=== PATIENT | male | born 1950 | race Caucasian/White ===

== ENCOUNTER → 2018-02-05 10:56 | Outpatient (CLI) | payer OTHER, SELFPAY ==
--- NOTE | 2018-02-05 11:00 | RAD_ITS ---
STUDY: X-RAY - RIGHT SHOULDER REASON FOR EXAM: Male, 67 years old. Pop after lifting something TECHNIQUE: 3 view(s) of the shoulder. COMPARISON: None. FINDINGS: Normal glenohumeral articulation. Normal acromioclavicular joint. Normal acromion. Normal humeral head and visualized proximal humerus. The soft tissue structures are unremarkable. Normal visualized pulmonary apex. Median sternotomy wires. RAD/Shoulder min 2 Views IMPRESSION: Normal x-ray examination of the shoulder. Electronically Signed: Jhonny Infante MD at 4:34 EDT Tel , Service support ,
== END ==
PROVIDERS: Family Provider Family Medicine; PCP Family Medicine; Visit Provider Physician Assistant
DX: S46.911A Strain of unspecified muscle, fascia and tendon at shoulder and upper arm level, right arm, initial encounter (principal); X58.XXXA Exposure to other specified factors, initial encounter
CPT/HCPCS: 73030

== ENCOUNTER → 2018-02-19 07:01 | Outpatient (CLI) | payer OTHER, SELFPAY ==
--- NOTE | 2018-02-19 07:02 | MRI_ITS ---
STUDY: MRI RIGHT SHOULDER REASON FOR EXAM: Limited range of motion, shoulder pain, lifting/pushing injury 3 weeks ago. TECHNIQUE: Standardized fat and water weighted pulse sequences were obtained in all 3 orthogonal planes. COMPARISON: Radiographs 02/05/2018. FINDINGS: There is mild supraspinatus tendinosis and a small intrasubstance partial-thickness tear of the distal posterior supraspinatus tendon (T2 coronal image 10). Normal infraspinatus tendon. There is mild distal subscapularis tendinosis (proton density axial image 12) without discrete tendon tear. Normal teres minor tendon. Normal supraspinatus muscle. Normal infraspinatus muscle. Normal subscapularis muscle. Normal teres minor muscle. Normal glenohumeral articulation. There a mild cystic change of the posterior aspect of the greater tuberosity. Normal biceps labral complex. Normal intracapsular long biceps tendon. Normal labrum. Normal capsulo- ligamentous complex. There is mild acromioclavicular arthrosis (T2 sagittal image 16) without substantial undersurface osteophytes. There is a Type II morphology (curved), with a neutral orientation. There is no subacromial-subdeltoid bursal fluid. Normal visualized coracohumeral and coracoacromial ligaments. Normal deltoid muscle. Normal trapezius muscle. MRI/Upper Ext Joint Only(Routine) IMPRESSION: Small intrasubstance partial-thickness tear and mild tendinosis of the supraspinatus tendon. Mild subscapularis tendinosis. Mild acromioclavicular arthrosis. Electronically Signed: David Dawn MD at 9:45 EDT Tel , Service support ,
== END ==
PROVIDERS: Family Provider Family Medicine; PCP Family Medicine; Visit Provider Physician Assistant
DX: S46.911A Strain of unspecified muscle, fascia and tendon at shoulder and upper arm level, right arm, initial encounter (principal)
CPT/HCPCS: 73221

== ENCOUNTER 2018-04-11 07:00 | Outpatient (RCR) | payer OTHER, SELFPAY ==
--- NOTE | 2018-03-12 09:47 | HP.PTEVAL_ITS ---
Patient's Visit Information NIDIA PRYOR is a 68 year old M referred to Physical Therapy by ANICETO Noble with a diagnosis of R shoulder strain. Date of Evaluation: 03/12/18 Physical Therapist: Donn Black PT, - Visit Plan Frequency: 3x /Week Duration: 4 Weeks Plan: R shoulder strengthening (rot cuff), scap stab ex's, pulleys, UBE, and HEP. CP for pain. - Subjective Subjective: DOI: 02/01/18. Pt reports he was lifting heavy objects over his head when he injured his R shoulder. Pt reports his shoulder popped which resulted in severe pain. Pt notes his pain shot down his arm. No PMHx. Pt is R hand dom. No R UE T or N at this time. Pt had an MRI which revealed a slight tear of the rot cuff. Pt notes he hopes to avoid surgery at this time. Pt reports he is now retired. Pt reports his pain is on the posterior aspect of R shoulder. Pt notes any type of pushing motion increases his pain. Pt states that tylenol helps with his pain. 2/10 pain at rest, 5/10 at worst (while sleeping) - Pain R shoulder pain Pain Intensity (Out of 10): 2 Pain Intensity Range: 5 - Objective Neuro: B UE sensation is WNL to light touch. Palpation: Pt is sore along the distribution of the infraspinatus tendon of the R shoulder. No obvious deformity present at this time. ROM: L shoulder flex= 150, abd= 132, ER= 35, IR WNL; R shoulder flex= 100, abd= 115, ER= 25, IR min limited. MMT: L shoulder is 5/5 throughout. R shoulder flex and abd= 4/5, ER= 4-/5, IR 5/5. SPecial testing: Pos garcia shanti test - Goals Goal 1:: Decrease R shoulder pain x 50% to aid with sleep Goal Time Frame: 4-6 Weeks Goal 2:: Increase R shoulder flex and abd ROM x 30 degrees to aid with overhead activity Goal Time Frame: 4-6 Weeks Goal 3:: Increase R shoulder strength x 1 grade to aid with IADL's Goal Time Frame: 4-6 Weeks Goal 4:: I with HEP Goal Time Frame: 4-6 Weeks - Rehabilitation Potential Rehabilitation Potential: Good - Anticipated Interventions Patient/Client Instruction: Educate patient on: Condition, Plan of Care For the Purpose of:: To improve self management Therapeutic Exercise to Include: Strength training, Endurance training, Body mechanics, Flexibilty training, Active ROM, Scapular Strength/Stabilization For the Purpose of:: To decrease pain, To increase ROM, To improve muscle performance and motor function Cryotherapy (ice pack, ice massage): Yes For the Purpose of:: To decrease pain Thank you for the opportunity to evaluate your patient. For Medicare and Medicare HMO plans, please review the plan of care and approve it. It will need to be FAXED BACK to us at [phone] for Medicare purposes. Please let me know if there are questions or concerns regarding this plan of care. Physician Signature: Date:
--- NOTE | 2018-04-11 07:00 | DT_ITS ---
This patient was seen during an EMR downtime April 09, 2018 - April 16, 2018. This patient may have a combination of paper and electronic documentation or all paper documentation. All documentation is viewable within the e-chart portion of [facility] for each patient visit.
--- NOTE | 2018-04-18 09:01 | HP.PTDCSUM ---
HP - PT D/C Summary It has been my pleasure to treat NIDIA PRYOR under orders from ANICETO Noble, for the diagnosis of R shoulder strain for a total of 13 visit(s). Discharge Date: Please see the following information for a summary of their discharge status. - Subjective Subjective: Due to electronic downtime procedure, the information from April 09- April 15 was electronically scanned in. to the medical record. Pt reports he is sore today. I dont really see any improvements - Pain R shoulder pain Pain Intensity (Out of 10): 2 - Objective Objective/Function: R shoulder ROM: flex= 125, abd= 115, ER= 40, IR min limited. MMT: ER= 4-/5, all others 5/5 throughout. Empty can and neer's impingement tests still pos. No sig improvements at this time - Goals Goal 1:: Decrease R shoulder pain x 50% to aid with sleep Goal 2:: Increase R shoulder flex and abd ROM x 30 degrees to aid with overhead activity Goal 3:: Increase R shoulder strength x 1 grade to aid with IADL's Goal 4:: I with HEP - Plan Plan: Discontinue, and RTD - D/C Information If there are questions or concerns regarding this patient's physical therapy, please feel free to call me at [phone]. Thank you for the referral of this patient. Sincerely, Donn Black, PT,
== END 2018-04-11 19:00 | disposition home or self-care (01) ==
LOC: PT 07:00
PROVIDERS: Family Provider Family Medicine; PCP Family Medicine; Visit Provider Physician Assistant
DX: S46.911D Strain of unspecified muscle, fascia and tendon at shoulder and upper arm level, right arm, subsequent encounter (principal)
CPT/HCPCS: 97110; 97161; 97530; G8984; G8985; G8986

== ENCOUNTER 2019-01-30 14:00 | Outpatient (RCR) | payer OTHER, SELFPAY ==
--- NOTE | 2018-12-27 10:54 | HP.PTEVAL ---
Patient's Visit Information NIDIA PRYOR is a 68 year old M referred to Physical Therapy by Alessio Marshall DO with a diagnosis of RIGHT ROTATOR CUFF STRAIN. Date of Evaluation: 12/27/18 Physical Therapist: Chetna Quan PT, Cert MDT - Visit Plan Frequency: 3x /Week Duration: 4 Weeks Plan: RIGHT UE US, ES WITH MH, ROM, STRETCHING AND STRENGTHENING INCLUDING SHOULDER JOINT MOBILIZATION AND A/AA/PROM TO HELP MEET SET GOALS. INSTRUCT IN PROPER POSTURE CONTROL, APPROPRIATE ACTIVITY MODIFICATIONS AND PROPER ERGONOMICS. POSTURE CORRECTION/STRENGTHEING. - Subjective Findings: Work/Leisure: RETIRED. Disability: NO. Present symptoms: RIGHT SHOULDER PAIN. RIGHT UE GENERALIZED WEAKNESS. CHRISTO HAND PAIN. Present since: 02/01/18. Pain Scale: Worst - 8/10 Least - 3/10. Currently: 01/13. 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 Symptoms at onset: RIGHT SHOULDER PAIN. Worse: REACHING TOO FAR, REACHING TOO QUICKLY, LYING ON IT, TRYING TO WORK OVER HEAD. Better: NOT USING IT. Disturbed sleep: YES. Previous history/Previous treatment: PHYSICAL THERAPY HERE LAST YEAR - 12 SESSIONS HELPED STRENGTH BUT NOT PAIN PER PATIENT REPORT. RIGHT SHOULDER INJECTION MAY 01 2018 WHICH HELPED FOR ABOUT [address] VENTURA - LAST FALL SURGERY WAS RECOMMENDED. RECENT CONSULT WITH DR. MARSHALL - PT RECOMMENDED NOT SURGERY. Dizziness: NO. Tinnitis: NO. Nausea: NO. Shortness of Breath: YES - HEART PROBLEMS. Difficulty Swollowing: NO. Gait: NORMAL. Accidents: NO. Unexplained weight loss: NO. Imaging: MRI FEBRUARY 2018 - MILD SUPRASPINATUS TENDINOSIS AND SMALL INTRASUBSTANCE PARTIAL THICKNESS TEAR OF THE DISTAL POSTERIOR SUPRASPINATUS TENDON. 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 MILD HEART ATTACK 2006. ANOTHER HEART STENT 2015. LAST HEART CATH LOOKED GOOD PER PATIENT. CHRONIC LBP AND STIFFNESS. PLOF (Prior Level of Function): UNLIMITED PRIOR TO WORK INJURY JANUARY 2018. OTHER: PATIENT REPORTS HE IS WILLING TO HAVE SURGERY IF HE HAS TO BUT REALLY DOESN'T WANT TO IF HE CAN AVOID IT. DOESN'T WANT TO LET IT GO TO LONG AND END UP NEEDING SHOULDER REPLACEMENT. - Objective Sitting Posture/Standing Posture: VERY FORWARD HEAD AND ROUNDED SHOULDERS. NO TORTICOLLIS. Active Correction of posture: NE - ONLY ABLE TO PARTIALLY CORRECT. LOW BACK VERY STIFF. Other Observations: INDEP GAIT INTO PT WITHOUT ANY ASSISTIVE DEVICES OR LOSS OF BALANCE. 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 LEFT UE GROSSLY WFL. RIGHT UE WEAKNESS THROUGHOUT AND TESTING IS PAIN LIMITED. Sensory deficit: NO. ROM deficit: RIGHT SHOULDER ACTIVE FLEX 92 DEG, ABD 78 DEG, SUPINE IR/ER WITH 70 DEG ABD 40 DEG/45 DEG. LEFT SHOULDER IS ALSO LIMITED IN ROM BUT NOT PAINFUL. 133 DEG ACTIVE FLEXION. Cervical Mvmt Loss: Flex: NIL. Pro: NIL. Ext: MOD. Ret: NATHAN. RSB: MOD TO NATHAN. LSB: MOD TO NATHAN. R Rot: MOD. L Rot: MOD. PATIENT DENIES INCREASED PAIN WITH CERVICAL ROM TESTING. Postural strength: POOR AND VERY STIFF. Palpation: MILD TENDERNESS THROUGHOUT RIGHT SHOULDER BUT ESPECIALLY LATERALLY. - Goals Goal 1:: DECREASE C/O RIGHT SHOULDER PAIN Goal Time Frame: 4-6 Weeks Goal 2:: IMPROVE RIGHT UE FUNCTIONAL ROM Goal Time Frame: 4-6 Weeks Goal 3:: IMPROVE RIGHT UE FUNCTIONAL STRENGTH Goal Time Frame: 4-6 Weeks Goal 4:: INDEP HEP Goal Time Frame: 4-6 Weeks - Rehabilitation Potential Rehabilitation Potential: Fair - Anticipated Interventions Patient/Client Instruction: Educate patient on: Condition, Plan of Care, Risk Factors, Benefits of Fitness Program For the Purpose of:: To improve self management Therapeutic Exercise to Include: Strength training, Body mechanics, Postural training, Passive ROM, Active ROM, Scapular Strength/Stabilization For the Purpose of:: To decrease pain, To increase ROM, To improve muscle performance and motor function, To increase tolerance to activity/condition/position, To improve ability of physical actions for home/community/work/leisure Manual Therapy Techniques to Include: Mobilization, Passive ROM For the Purpose of:: To decrease pain, To increase ROM, To improve nutrient delivery to tissue TENS: Yes Cryotherapy (ice pack, ice massage): Yes Thermo therapy (hot pack): Yes Ultrasound (thermal/non thermal): Yes For the Purpose of:: To decrease pain, To decrease swelling/inflammation, To increase ROM, To improve nutrient delivery to tissue Thank you for the opportunity to evaluate your patient. For Medicare and Medicare HMO plans, please review the plan of care and approve it. It will need to be FAXED BACK to us at [phone] for Medicare purposes. For Medicare only, by signing this I certify the plan of care. Please let me know if there are questions or concerns regarding this plan of care. Physician Signature: Date:
--- NOTE | 2019-01-30 15:51 | HP.PTREVAL ---
Alessio Marshall, DO, It has been my pleasure to treat NIDIA PRYOR over the last 11 visits for RIGHT ROTATOR CUFF STRAIN. Please see the progress note below for an update on the physical therapy plan of care! Subjective: PATIENT CONTINUES TO REPORT IMPROVEMENT. HE REPORTS HE HAS GAINED AN AWFUL LOT SINCE STARTING PHYSICAL THERAPY. STATES HE HAS AN GIA'T WITH DR. FUENTES TOMORROW. Objective/Function: PATIENTS STRENGTH, ROM AND PAIN HAVE IMPROVED SINCE STARTING THERAPY. 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 AROM RIGHT SHOULDER: FLEX 121 DEG, ABD 124 DEG. PROM: FLEX 138, ABD 129 IR 51 DEG, ER 49 DEG (WITH 70 DEG ABD). QUICK DASH SCORE HAS IMPROVED FROM 34 TO 21 AND NOW 19. Plan Plan: FOLLOW UP WITH DR. MENDOZA Goals Goal 1:: DECREASE C/O RIGHT SHOULDER PAIN Goal Time Frame: 4-6 Weeks Goal 2:: IMPROVE RIGHT UE FUNCTIONAL ROM Goal Time Frame: 4-6 Weeks Goal 3:: IMPROVE RIGHT UE FUNCTIONAL STRENGTH Goal Time Frame: 4-6 Weeks Goal 4:: INDEP HEP Goal Time Frame: 4-6 Weeks Anticipated Interventions Patient/Client Instruction: Educate patient on: Condition, Plan of Care, Risk Factors, Benefits of Fitness Program For the Purpose of:: To improve self management Therapeutic Exercise to Include: Strength training, Body mechanics, Postural training, Passive ROM, Active ROM, Scapular Strength/Stabilization For the Purpose of:: To decrease pain, To increase ROM, To improve muscle performance and motor function, To increase tolerance to activity/condition/position, To improve ability of physical actions for home/community/work/leisure Manual Therapy Techniques to Include: Mobilization, Passive ROM For the Purpose of:: To decrease pain, To increase ROM, To improve nutrient delivery to tissue TENS: Yes Cryotherapy (ice pack, ice massage): Yes Thermo therapy (hot pack): Yes Ultrasound (thermal/non thermal): Yes For the Purpose of:: To decrease pain, To decrease swelling/inflammation, To increase ROM, To improve nutrient delivery to tissue Please do not hesitate to contact me at [phone] by phone or if you have questions or concerns regarding this new plan of care! Sincerely, Chetna Quan, PT, Cert MDT
--- NOTE | 2019-04-15 16:44 | HP.PT.NRP ---
HP - Discharge Summary (1) - Patient Information NIDIA PRYOR was seen in my office for initial evaluation on 12/27/18. The following Plan of Care was established for this patient: Initial Frequency: 3x /Week Initial Duration: 4 Weeks - Anticipated Interventions Patient/Client Instruction: Educate patient on: Condition, Plan of Care, Risk Factors, Benefits of Fitness Program For the Purpose of:: To improve self management Therapeutic Exercise to Include: Strength training, Body mechanics, Postural training, Passive ROM, Active ROM, Scapular Strength/Stabilization For the Purpose of:: To decrease pain, To increase ROM, To improve muscle performance and motor function, To increase tolerance to activity/condition/position, To improve ability of physical actions for home/community/work/leisure Manual Therapy Techniques to Include: Mobilization, Passive ROM For the Purpose of:: To decrease pain, To increase ROM, To improve nutrient delivery to tissue TENS: Yes Cryotherapy (ice pack, ice massage): Yes Thermo therapy (hot pack): Yes Ultrasound (thermal/non thermal): Yes For the Purpose of:: To decrease pain, To decrease swelling/inflammation, To increase ROM, To improve nutrient delivery to tissue This patient was last seen in our office 01/30/19. Pertinent comments regarding their Physical therapy will appear below: This patient has not returned to Physical Therapy and is appropriate to return to MD for further follow-up as needed. At this point I will be discontinuing this patient from physical therapy. I would be happy to see this patient again in the future if found appropriate by the physician. Thank you! Chetna Quan, PT, Cert MDT
== END 2019-01-30 19:00 | disposition home or self-care (01) ==
LOC: PT 14:00
PROVIDERS: Family Provider Family Medicine; PCP Family Medicine; Referring Provider Orthopaedic Surgery; Visit Provider Orthopaedic Surgery
DX: S46.011D Strain of muscle(s) and tendon(s) of the rotator cuff of right shoulder, subsequent encounter (principal); S46.911D Strain of unspecified muscle, fascia and tendon at shoulder and upper arm level, right arm, subsequent encounter
CPT/HCPCS: 97035; 97110; 97140; 97162; 97530

== ENCOUNTER 2019-08-20 08:51 | Day surgery (SDC) | payer OTHER, SELFPAY ==
[2019-07-29 08:15] VITALS: BMI 28.0
[2019-08-20] VITALS (8 sets, daily range): BP systolic 102–178; BP diastolic 62–70; PULSE 57–68; RESP 16–18; TEMP 36.1–36.4; O2SAT 96–100; BMI 27.3
[2019-08-20] MEDS: Lactated Ringers 1,000 ML 100 ML IV (09:42)
--- NOTE | 2019-08-20 09:46 | EKG12_ITS ---
Test Reason : PRE OP Blood Pressure : / mmHG Vent. Rate : 054 BPM Atrial Rate : 054 BPM P-R Int : 246 ms QRS Dur : 092 ms QT Int : 460 ms P-R-T Axes : 033 -21 252 degrees QTc Int : 436 ms Sinus bradycardia with 1st degree A-V block T wave abnormality, consider anterolateral ischemia Abnormal ECG When compared with ECG of 16-MAR-2004 09:01, HI interval has increased Nonspecific T wave abnormality now evident in Inferior leads T wave inversion more evident in Anterior leads T wave inversion less evident in Lateral leads Confirmed by JASPER PAREDES ([id number]), web editor DINAH ALLRED ([id number]) on 08/23/2019 10:30:20 AM Referred By: Alessio Marshall Confirmed By:JASPER PAREDES
--- NOTE | 2019-08-20 09:47 | PCM.HP.BLA ---
History and Physical Date of Admission: 08/20/19 Intake Vital Signs 07/29/19 Body Mass Index (BMI) 28.0 Intake Visit Reasons: right shoulder Chief Complaint: R shoulder recheck Allergies No Known Allergies Allergy (Verified 11/30/18 08:23) Medications carvedilol 6.25 mg tablet PO 30 Days #60 02/05/18 [History Confirmed 07/29/19] clopidogrel 75 mg tablet PO 75 Days #75 02/05/18 [History Confirmed 07/29/19] isosorbide mononitrate ER 30 mg tablet,extended release 24 hr PO 30 Days #30 02/05/18 [History Confirmed 07/29/19] pravastatin 40 mg tablet PO 30 Days #30 02/05/18 [History Confirmed 07/29/19] PFSH Medical History (Updated 02/05/18 @ 10:56 by Darline Boyle) Heart disease (Acute) Surgical History (Updated 02/05/18 @ 10:56 by Darline Boyle) H/O heart surgery (Acute) History of knee surgery (Acute) Hx of heart bypass surgery (Acute) Social History (Updated 07/29/19 @ 10:49 by Alessio Marshall DO) Smoking Status: Never smoker alcohol intake: never HPI right shoulder: Details: Parts of this documentation were recorded by a scribe, this documentation accurately reflects the service provided and the decisions made by Alessio muñiz DO 07/29/19 0753. NIDIA PRYOR is a 69 year old M here today for right shoulder pain. Patient has had an MRI and x-rays of the shoulder. Denies any previous sugery. Patient states he had is injury February 01 2018 this was a workers comp injury and we just got approval for surgery. Denies numbness, tingling or other associated symptoms. Has limited ROM and pain over his shoulder. ROS Const Reports system reviewed and no additional complaints, except as docu Eyes Reports system reviewed and no additional complaints, except as docu ENT Reports system reviewed and no additional complaints, except as docu Card Reports system reviewed and no additional complaints, except as docu Resp Reports system reviewed and no additional complaints, except as docu GI Reports system reviewed and no additional complaints, except as docu Reports system reviewed and no additional complaints, except as docu Musc Reports system reviewed and no additional complaints, except as docu, Reports as per HPI Skin/Breast Reports system reviewed and no additional complaints, except as docu Neuro Yes system reviewed and no additional complaints, except as docu Psych Reports system reviewed and no additional complaints, except as docu Endo Reports system reviewed and no additional complaints, except as docu Lev/Lymph Reports system reviewed and no additional complaints, except as docu Aller/Immun Reports system reviewed and no additional complaints, except as docu Ortho Exam Right Shoulder Skin/Wound: No ecchymosis, No erythema, No swelling Testing: Negative TTP Biceps, TTP AC Joint, AROM-Forward Elevation 0-180 (110) or PROM-Forward Elevation 0-180 (115) SHOULDER: 80 abdcudtion 95 passive abduction external rotation 15 for active and passive internal rotation 12 Internal rotation 10 Assessment & Plan Problems 1. Strain of unspecified muscle, fascia and tendon at shoulder and upper arm level, right arm, initial encounter S46.011F Plan Educated that on his MRI from 2018 he had a small RTC tear. If this has not torn any more then we will not need to do a RTC repair. Patient educated that we will do a manipulation under anesthesia with arthroscopic evaluation of rotator cuff possible rotator cuff repair arthroscopic lysis of adhesion and capsular release if needed, subacromial decompression. Patient educated that he will start therapy 1 day post op to work on ROM. Reviewed the pre-operative plans with the patient. Risks and benefits of the procedure were fully explained, including but not limited to infection, neurovascular injury, continued pain, arthritis, stiffness, need for further surgery, re-injury, DVT, PE, general risks of anesthesia, and loss of limb or life. The patient understands all the risks and does wish to proceed with written consent. Patient educated that he will stop his aspirin Follow up 2 weeks post op or sooner if pain, swelling, numbness or associated symptoms, or concerns develop. All questions answered. Patient in agreement of plan. Coding Level of Care Code Off vis,est,level 3 Diagnoses Strain of unspecified muscle, fascia and tendon at shoulder and upper arm level, right arm, initial encounter S46.487R I have re-examined the patient. There are no clinical changes since date of exam
[2019-08-20 10:02] LABS: Hematocrit 42.4 % (40-54); Hemoglobin 14.3 g/dL (13.0-16.5); Mean Corp Hgb Conc 33.7 g/dL (32-36); Mean Corpuscular Hgb 32.6 pg (27.0-32.0); Mean Corpuscular Volume 96.8 fL (80-94); Mean Platelet Vol. 10.9 fl (6.2-12.0); Platelet Count 185 K/mm3 (150-450); RBC Distribution Width CV 11.6 % (11.6-14.6); RBC Distribution Width SD 41.6 fl (35.1-43.9); Red Blood Count 4.38 M/mm3 (4.6-6.2); White Blood Count 4.9 K/mm3 (4.4-11.0)
[2019-08-20 10:24] LABS: Anion Gap 9 (5-15); BUN 17 mg/dL (7-18); Chloride 103 mmol/L (98-107); Creatinine, Serum 1.13 mg/dL (0.70-1.30); EST Glomerular Filtration Rate 69 mL/min (>60); Est Glom Filt Rate - Afr Amer 83 mL/min (>60); Estimated Creatinine Clearance 67.56 ml/min; Glucose 278 mg/dL (74-106); Potassium 4.5 mmol/L (3.5-5.1); Sodium Level 137 mmol/L (136-145)
[2019-08-20] MEDS: Bupiv/Epi 0.5% Mpf 30 ML Vial (10:37)
[2019-08-20] MEDS: Cefazolin 2 GM in 0.9% Normal Saline 100 ML IV (11:50)
[2019-08-20] MEDS: Epinephrine (1 mg/ml) 1 MG/ML VIAL ×2 (12:48)
[2019-08-20] MEDS: MethylPREDNISolone Acetate 80 MG/ML Vial (13:00)
[2019-08-20] MEDS: Bupivacaine 0.5% PF 10 ML VIAL (13:00)
--- NOTE | 2019-08-20 13:26 | PCM.OPRPT ---
Report of Operation Date of Procedure: 08/20/19 Description of Surgical Findings:: Preoperative diagnosis: Right shoulder impingement, adhesive capsulitis intrasubstance rotator cuff tear supraspinatus Postoperative diagnosis: Right shoulder impingement adhesive capsulitis labral tear biceps tendinopathy and tenosynovitis Procedure: Arthroscopic right shoulder labral debridement biceps tenotomy anterior capsular release with rotator interval debridement evaluation of rotator cuff subacromial decompression with acromioplasty and manipulation under anesthesia Anesthesia: General with interscalane block; EBL: 10 cc Complications: none Indication for procedure: 69-year-old male patient who had an injury at work who developed subsequent adhesive capsulitis did have MRI evidence. Failed extensive conservative treatment and wished to proceed with a arthroscopic surgery to attempt to alleviate his symptoms risks benefits and alternatives of the procedure were reviewed including risk of bleeding infection nerve artery tissue damage need for further surgery continued pain postoperative stiffness and need for postoperative physical therapy and continued pain. Procedure : Patient was met in the preoperative holding area the operative extremity was identified by both the patient and the physician and was marked. Patient was met by anesthesia and brought back to the operating room on a wheeled cart. Patient was transferred to the operating table in the supine position. Anesthesia was started. Patient was then positioned in the beachchair configuration. Bony prominences were well-padded. The patient was prepped and draped in the usual sterile fashion. A timeout was called to ensure the proper patient procedure and extremity were being contemplated. Anatomic landmarks were palpated and marked with a marking pen. A 0.25% Marcaine with epinephrine was injected into the planned portal sites. An 11 blade scalpel was used to make a stab incision in the posterpolateral portal. Arthroscope was inserted into the glenohumeral space with ease. Inflow and outflow tubes were attached and arthroscopic visualization began. An anterior portal was established with an 18-gauge spinal needle. Immediately there is noted to be separation of the anterior superior labrum with tearing in the area as well as tenosynovitis of the biceps tendon and synovitis of the joint capsule . rotator cuff was evaluated and there was intact both subscapularis as well as supraspinatus and infraspinatus with significant adhesive scarring and synovitis with the use of an ArthroCare wand and a shaver the rotator interval was developed a biceps tenotomy was performed the synovial tissue was removed from the anterior and posterior aspect of the subscapularis tendon labrum was debrided and biceps tenotomy was performed,capsular release was continued down until the 6 o'clock position with careful attention not going to deep inferiorly to avoid injury to the axillary nerve was noted to be some grade 3 changes of cartilage of the humeral head posteriorly the arthroscope was then repositioned to the subacromial space there was extensive bursal adhesions which were removed with a shaver and ArthroCare wand anterior acromial spurring was removed with number manipulation was then repeated at the end of the procedure with improvement in forward flexion internal and external rotation and extension The wound was thoroughly irrigated through the scope followed by a subacromial injection with 40 mg Depo-Medrol 4 mg of morphine and 8 cc of 0.5% Marcaine plain. Suture portals were closed with 3-0 nylon arthroscopic stitches followed by Xeroform 4 x 4 ABD and a Ioban dressing. A regular sling was placed. Anesthesia was reversed and patient tolerated the procedure well was and was transferred to the PACU all counts were correct patient will follow-up in the office in 2 weeks patient may begin active range of motion immediately he will start physical therapy tomorrow
--- NOTE | 2019-08-20 13:34 | DCINST_ITS ---
Discharge Diet: No Restrictions Call your doctor if you observe: Fever of 101 or Higher, Shortness of breath Additional Instructions: Leave the dressing on and intact for 48 hours. Then may remove and shower with warm water and antibacterial soap. But do not submerge in tub for 3 weeks. ice shoulder 15 min on and 15 mins off next 72 hrs. remove sling as possible and use arm for activities of daily living and encourage elbow and shoulder range of motion and pendulum exercises. preform active range of motion of shoulder immediately. Do not lift push or pull greater then 5 lbs with operative extremity. Encourage finger and wrist range of motion. If any concerns call Dr. Marshall's office. Allergies/Adverse Reactions: Allergies No Known Allergies Allergy (Verified 08/13/19 15:00) Medications to take at Discharge carvedilol 6.25 mg tablet 6.25 mg PO BID 30 Days #60 02/05/18 clopidogrel 75 mg tablet 75 mg PO DAILY 75 Days #75 02/05/18 isosorbide mononitrate ER 30 mg tablet,extended release 24 hr 30 mg PO DAILY 30 Days #30 02/05/18 pravastatin 40 mg tablet 40 mg PO DAILY 30 Days #30 02/05/18 Aspirin E.C. [Ecotrin] 81 mg PO DAILY@0800 08/13/19 Oxycodone HCl/Acetaminophen [Percocet 5/325] 1 - 2 tab PO Q4H PRN PRN #50 tab 08/20/19 The following prescriptions were given: Oxycodone HCl/Acetaminophen [Percocet 5/325] 1 - 2 tab PO Q4H PRN PRN #50 tab PRN Reason: Pain Transmission Status: Received by [facility]/pharmacy #[id number] Primary Care Physician: Juan Carlos Keene MD [Primary Care Provider] - Test Results: Test results from this visit will be discussed in further detail at your follow- up appointment, if applicable.
[2019-08-20] MEDS: Acetaminophen 325 MG Tablet PO (14:14)
[2019-08-20] MEDS: oxyCODONE 5 MG Tablet PO (14:14)
== END 2019-08-20 15:13 | disposition home or self-care (01) ==
LOC: SDC 08:53 → AC 08:55
PROVIDERS: Anesthesiology; Family Provider Family Medicine; PCP Family Medicine; Referring Provider Orthopaedic Surgery; Visit Provider Orthopaedic Surgery
PROC: (CPT 29827; principal; 2019-08-20 10:10)
DX: M75.41 Impingement syndrome of right shoulder (principal); M75.01 Adhesive capsulitis of right shoulder; M75.21 Bicipital tendinitis, right shoulder; M75.101 Unspecified rotator cuff tear or rupture of right shoulder, not specified as traumatic; S46.911A Strain of unspecified muscle, fascia and tendon at shoulder and upper arm level, right arm, initial encounter; X58.XXXA Exposure to other specified factors, initial encounter; Y93.9 Activity, unspecified; Y92.9 Unspecified place or not applicable; I25.2 Old myocardial infarction; I11.9 Hypertensive heart disease without heart failure; G47.30 Sleep apnea, unspecified; E78.00 Pure hypercholesterolemia, unspecified; Z95.1 Presence of aortocoronary bypass graft; Z79.899 Other long term (current) drug therapy; Z87.891 Personal history of nicotine dependence
CPT/HCPCS: 29823; 29825; 64415; 80048; 85027; 93005; J7120; J2405

== ENCOUNTER 2019-10-02 08:30 | Outpatient (RCR) | payer OTHER, SELFPAY ==
[2019-07-29 08:15] VITALS: BMI 28.0
[2019-08-20 09:10] VITALS: BMI 27.3
--- NOTE | 2019-08-21 15:26 | HP.PTEVAL_ITS ---
Patient's Visit Information NIDIA PRYOR is a 69 year old M referred to Physical Therapy by Alessio Marshall DO with a diagnosis of S/P RIGHT SHOULDER MANIPULATION. Date of Evaluation: 08/21/19 Physical Therapist: Chetna Quan PT, Cert MDT - Visit Plan Frequency: 2-3x /Week Duration: 4-6 Weeks Plan: NO RESTRICTION. A/AA/PROM RIGHT UE TOLERATED. FOLLOW UP PENDING WITH DR. FUENTES SEP 02 2019 - Subjective Findings: Diagnosis: S/O RIGHT SHOULDER SCOPE MUS 08/20/19. Work/Leisure: RETIRED. Disability: NO. Present symptoms: PAIN IN THE WHOLE SHOULDER (RIGHT). NO NUMBNESS OR TINGLING RIGHT NOW. DID HAVE SOME SWELLING, NUMBNESS AND TINGLING IN THE RIGHT UE LAST NIGHT. Present since: FEBRUARY 01 2018. Pain Scale: Worst - 9/10 Least - 4/10. Currently: 4/10. 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 Symptoms at onset: RIGHT SHOULDER PAIN. Worse: PRIOR TO SURGERY - MOVING ARM TOO FAST OR REACHING UP OR OUT TOO FAR. HAS BEEN IN SLING SINCE SURGERY YESTERDAY EXCEPT AT NIGHT. HAS NOT MOVED HIS SHOULDER SINCE SURGERY. Better: BEFORE SURGERY - WHEN NOT USING IT. PERCOCET. Disturbed sleep: YES. Previous history/Previous treatment: RIGHT SHOULDER INJURY AT WORK 2018. PT IN 2018 AFTER INJURY. PHYSICAL THERAPY HERE AT [facility] 2018. UPON FOLLOW UP WITH AFTER PT AND SURGERY RECOMMENDED. STATES IT TOOK A LONG TIME TO GET APPROVAL. UNDERWENT RIGHT SHOULDER SCOPE AND MANIPULATION UNDER ANESTHESIA. PATIENTS REPORTS THE DOCTOR SAID HE DIDN'T GET FULL ROM. Dizziness: NO. Tinnitis: NO. Nausea: NO. Shortness of Breath: NO. Difficulty Swollowing: NO. Gait: NORMAL. Accidents: NO. Unexplained weight loss: NO. Imaging: RIGHT SHOULDER MRI 2018. PMH/Recent major surgery: PLOF (Prior Level of Function): - Objective Sitting Posture/Standing Posture: POOR. WEARING SLING ON RIGHT UE TO PT. FORWARD HEAD AND ROUNDED SHOULDERS. Other Observations: PATIENT HAS NOT MOVED HIS SHOULDER SINCE SURGERY AND IS RELUCTANT TO DO SO. Motor deficit: RIGHT UE NT. Sensory deficit: NT. ROM deficit: RIGHT UE AROM: HAND, WRIST AND ELBOW - FULL. RIGHT SHLD AROM IN SITTING: FLEX 65 DEG, ABD 58 DEG. PROM RIGHT SHOULDER IN SUPINE: FLEX 124 DEG, SCAPTION 141 DEG, IR/ER W/75 DEG ABD = 40/54 DEG. Postural strength: POOR. TREATMENT: THIS PATIENT WAS SEEN TODAY FOR PROM OF RIGHT SHOULDER ALL PLANES TO TOLERANCE AND EX. INSTRUCTED PATIENT IN WALL SLIDES INTO FLEX, WALKING AWAY FROM TABLE FOR SELF SHOULDER FLEX STRETCHING, WAND EX'S ALL PLANES IN SUPINE AND STANDING, ER SELF STRETCHING IN DOORWAY. PATIENT WAS IN THERAPY FOR HIS SHOULDER BEFORE SURGERY AND RE-CALLS A LOT OF THE EX'S. - Goals Goal 1:: DECREASE C/O RIGHT SHOULDER PAIN Goal Time Frame: 4-6 Weeks Goal 2:: IMPROVE RIGHT SHOULDER FUNCTIONAL ROM TO EASE ADL'S. Goal Time Frame: 4-6 Weeks Goal 3:: IMPROVE RIGHT SHOULDER FUNCTIONAL STRENGTH TO EASE ADL'S. Goal Time Frame: 4-6 Weeks Goal 4:: PATIENT WILL BE INDEP WITH A HEP FOR CONTINUED IMPROVEMENT ONCE FORMAL PHYSICAL THERAPY CONCLUDES. - Rehabilitation Potential Rehabilitation Potential: Fair - Anticipated Interventions Patient/Client Instruction: Educate patient on: Condition, Plan of Care, Risk Factors, Benefits of Fitness Program For the Purpose of:: To improve self management Therapeutic Exercise to Include: Strength training, Passive ROM, Active ROM, Scapular Strength/Stabilization For the Purpose of:: To decrease pain, To increase ROM, To improve muscle performance and motor function, To increase tolerance to activity/condition/position, To improve ability of physical actions for home/community/work/leisure Cryotherapy (ice pack, ice massage): Yes Thermo therapy (hot pack): Yes Ultrasound (thermal/non thermal): Yes For the Purpose of:: To decrease pain, To decrease swelling/inflammation, To increase ROM, To improve nutrient delivery to tissue Thank you for the opportunity to evaluate your patient. For Medicare and Medicare HMO plans, please review the plan of care and approve it. It will need to be FAXED BACK to us at [phone] for Medicare purposes. For Medicare only, by signing this I certify the plan of care. Please let me know if there are questions or concerns regarding this plan of care. Physician Signature: Date:____
--- NOTE | 2019-10-02 09:56 | HP.PTDCSUM ---
HP - PT D/C Summary It has been my pleasure to treat NIDIA PRYOR under orders from Alessio Marshall DO, for the diagnosis of S/P RIGHT SHOULDER MANIPULATION for a total of 18 visit(s). Discharge Date: 10/02/19 Please see the following information for a summary of their discharge status. - Subjective Subjective: GIA'T PENDING WITH DR. MARSHALL IN OCT. ONLY GETTING TWINGES OF PAIN IN BICEPS NOW. HEP IS GOING GOOD. PATIENT REPORTS HIS SHOULDER IS DOING MUCH BETTER OVER-ALL. ABOUT 90% BETTER BUT I'M NOT QUITE THERE YET. - Pain RIGHT SHOULDER Pain Intensity (Out of 10): 0 RIGHT BICEP Pain Intensity (Out of 10): 0 - Overall Improvement % Improvement: 90 - Objective Objective/Function: PATIENT HAS MADE GREAT PROGRESS WITH PHYSICAL THERAPY. UPON EXAM TODAY: ROM deficit: RIGHT UE AROM: HAND, WRIST AND ELBOW - FULL. RIGHT SHLD AROM IN SITTING: FLEX 153 DEG DEG, ABD 165 DEG. PROM RIGHT SHOULDER IN SUPINE: FLEX 147 DEG, IR/ER W/90 DEG ABD = 68/73 DEG. MMT: RIGHT SHLD FLEX 4/5, ABD 4/4, IR 4/5, ER 4/5. 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 PATIETN GETS PAIN TRYING TO DO LIGHT STRENGTHENING THROUGH INTERNAL ROTATION ROM BUT NO PAIN WITH MMT'ING MID-RANGE WITH ELBOW AT SIDE. - Goals Goal 1:: DECREASE C/O RIGHT SHOULDER PAIN Goal Progress: Goal Met Goal 2:: IMPROVE RIGHT SHOULDER FUNCTIONAL ROM TO EASE ADL'S. Goal Progress: Goal Met Goal 3:: IMPROVE RIGHT SHOULDER FUNCTIONAL STRENGTH TO EASE ADL'S. Goal Progress: Goal Met Goal 4:: PATIENT WILL BE INDEP WITH A HEP FOR CONTINUED IMPROVEMENT ONCE FORMAL PHYSICAL THERAPY CONCLUDES. Goal Progress: Goal Met - Plan Plan: D/C TO PENDING SURGICAL CONSULT AND HEP. - D/C Information If there are questions or concerns regarding this patient's physical therapy, please feel free to call me at [phone]. Thank you for the referral of this patient. Sincerely, Chetna Quan, PT, Cert MDT
== END 2019-10-02 19:00 | disposition home or self-care (01) ==
LOC: PT 08:30
PROVIDERS: Family Provider Family Medicine; PCP Family Medicine; Referring Provider Orthopaedic Surgery; Visit Provider Orthopaedic Surgery
DX: Z98.890 Other specified postprocedural states (principal); V89.2XXD Person injured in unspecified motor-vehicle accident, traffic, subsequent encounter
CPT/HCPCS: 97110; 97140; 97161; 97530

== ENCOUNTER → 2024-01-12 | Outpatient (CLI) | payer MEDICARE, SELFPAY ==
--- NOTE | 2024-01-12 07:42 | CDU_ITS ---
Reason For Study: carotid stenosis Rt. Velocities/BP Lt. Velocities/BP Prox CCA 59.1/0.0 cm/sec. Prox CCA 94.1/10.6 cm/sec. Mid CCA 98.5/9.5 cm/sec. Mid CCA 127.1/10.2 cm/sec. Dist CCA 72.1/10.6 cm/sec. Dist CCA 130.8/12.1 cm/sec. Prox ICA 102.6/22.3 cm/sec. Prox ICA 51.9/7.9 cm/sec. Mid ICA 198.9/27.7 cm/sec. Mid ICA 109.4/23.6 cm/sec. Dist ICA 92.4/15.7 cm/sec. Dist ICA 82.0/18.1 cm/sec. Prox ECA 355.6/12.1 cm/sec. Prox ECA 190.1/0.0 cm/sec. Rt. Vert. 88.8/21.2 cm/sec. Lt. Vert. 45.0/4.3 cm/sec. Right Extracranial There is homogeneous, irregular atherosclerotic plaque noted in the right common carotid artery. There is heterogeneous, irregular atherosclerotic plaque noted in the right internal carotid artery. There is heterogeneous, smooth atherosclerotic plaque noted in the right external carotid artery. Antegrade flow is noted in the right vertebral artery. There is heterogeneous, irregular atherosclerotic plaque noted in the right bulb. Left Extracranial There is homogeneous, smooth atherosclerotic plaque noted in the left common carotid artery. There is homogeneous, smooth atherosclerotic plaque noted in the left internal carotid artery. The left internal carotid artery is not well visualized. There is homogeneous, smooth atherosclerotic plaque noted in the left external carotid artery. Antegrade flow is noted in the left vertebral artery. There is homogeneous, smooth atherosclerotic plaque noted in the left bulb. Procedure Carotid Duplex 16266. This is a Carotid Duplex examination using B-mode, color flow and specral Doppler. The study was technically difficult. Exam performed in department. VL/Carotid Duplex Ultrasound Interpretation Summary Moderate (50-69%) stenosis right extracranial internal carotid. Mild (<50%) kim nosis left extracranial internal carotid. Flow within the vertebral arteries is antegrade bilaterally. Ordering Physician: Ammon Hatfield Referring Physician: Juan Carlos Keene Performed By: Lizeth Goss, JUAN, RVT
--- OUTSIDE RECORDS SUMMARY | 2024-01-12 07:42 | XMS RPT_ITS | CCD ---
Author Name Unknown Address [address] [place] [address] [id number] [place] [address] Organization [facility] Care Team Providers Care Medicaid Billing Clerk Name Role Phone GONZALEZ OLIVER MD Primary Care Physician GONZALEZ OLIVER MD Primary Care Unavailable GONZALEZ OLIVER MD Attending Unavailable GONZALEZ OLIVER MD Primary Care Unavailable GONZALEZ OLIVER MD Attending Unavailable GONZALEZ OLIVER MD Attending Unavailable GONZALEZ OLIVER MD Primary Care Unavailable Medications Current Medications Medication Drug Class(es) Dates Sig (Normalized) Sig (Original) aspirin 81 mg delayed release oral tablet (6 sources) Platelet Aggregation Inhibitor, Nonsteroidal Anti-inflammatory Drug Start: 11-01-2016 aspirin 81 mg oral delayed release tablet Dose : 81 mg = 1 tab(s), Oral, Daily Start Date: 11/01/16 Status: Ordered Problems Problem Classification Problem Date Documented Date Episodic/Chronic Coronary atherosclerosis and other heart disease (13 sources) Coronary arteriosclerosis; Translations: [Coronary arteriosclerosis in [place] artery] Onset: 09-13-2023 12-18-2020 Chronic Coronary atherosclerosis and other heart disease (6 sources) Patient post percutaneous transluminal coronary angioplasty 12-18-2019 Episodic Diabetes mellitus without complication (14 sources) Diabetes mellitus; Translations: [Type 2 diabetes mellitus] Onset: 09-13-2023 05-06-2020 Chronic Disorders of lipid metabolism (8 sources) Hyperlipidemia; Translations: [Hyperlipidemia, unspecified] Onset: 09-13-2023 05-06-2020 Chronic Essential hypertension (2 sources) Essential (primary) hypertension; Translations: [Essential (primary) hypertension] Onset: 03-16-2023 Chronic Heart valve disorders (5 sources) Heart murmur 03-01-2022 Episodic Nonspecific chest pain (5 sources) Tight chest 12-24-2019 Episodic Occlusion or stenosis of precerebral arteries (6 sources) Bilateral stenosis of carotid arteries 08-31-2021 Chronic Other circulatory disease (6 sources) Carotid bruit 12-18-2019 Episodic Residual codes; unclassified (6 sources) Obstructive sleep apnea syndrome 05-06-2020 Chronic Residual codes; unclassified (2 sources) Obstructive sleep apnea (adult) (pediatric); Translations: [Obstructive sleep apnea (adult) (pediatric)] Onset: 09-13-2023 Chronic Residual codes; unclassified (4 sources) Foreign body 06-22-2022 Episodic Results Test Name Value Interpretation Reference Range Facil ity Encounters Encounter Date Encounter Type Care Provider Facility Start: 09-13-2023 End: 09-18-2023 ambulatory GONZALEZ OLIVER MD Facility:B Start: 09-13-2023 End: 09-17-2023 Outreach Lab GONZALEZ OLIVER MD [facility] Start: 03-16-2023 End: 03-21-2023 ambulatory GONZALEZ OLIVER MD Facility:B Start: 03-16-2023 End: 03-20-2023 Outreach Lab GONZALEZ OLIVER MD [facility] Start: 03-08-2023 End: 03-13-2023 ambulatory GONZALEZ OLIVER MD Facility:B Start: 03-08-2023 End: 03-12-2023 Outreach Lab GONZALEZ OLIVER MD [facility] Start: 07-05-2022 End: 07-05-2022 Patient encounter procedure GONZALEZ OLIVER MD [facility] Start: 03-11-2022 End: 03-11-2022 Patient encounter procedure TAMARA DOWNING APRN-RECEPTIONIST DOCTOR'S OFFICE [facility] Start: 10-11-2021 End: 10-11-2021 Patient encounter procedure TAMARA DOWNING APRN-RECEPTIONIST DOCTOR'S OFFICE [facility] Procedures Date Procedure Procedure Detail Performing Clinician Start: 12-09-2020 Percutaneous translu shyam coronary angioplasty TAMARA DOWNING SECURITY INFRASTRUCTURE ENGINEER-RECEPTIONIST DOCTOR'S OFFICE Immunizations Immunization Date Immunization Notes Care Provider [facility] 10-18-2021 SARS-CoV-2 mRNA (tozinameran) vaccine GONZALEZ OLIVER MD [facility] 01-28-2021 COVID-19, mRNA, LNP- S, PF, 100 mcg/ 0.5 mL dose; Translations: [Moderna COVID-19 Vaccine] TAMARA DOWNING SECURITY INFRASTRUCTURE ENGINEER-RECEPTIONIST DOCTOR'S OFFICE [facility] 12-31-2020 COVID-19, mRNA, LNP- S, PF, 100 mcg/ 0.5 mL dose; Translations: [Moderna COVID-19 Vaccine] TAMARA DOWNING SECURITY INFRASTRUCTURE ENGINEER-RECEPTIONIST DOCTOR'S OFFICE [facility] 09-07-2020 zoster vaccine, live TAMARA DOWNING SECURITY INFRASTRUCTURE ENGINEER-PsyQic [facility] 01-14-2020 influenza, injectabl e, quadrivalent, preservative free; Translations: [Fluarix PF Quadrivalent ] TAMARA DOWNING SECURITY INFRASTRUCTURE ENGINEER-RECEPTIONIST DOCTOR'S OFFICE [facility] 01-14-2020 pneumococcal polysaccharide vaccine, 23 valent; Translations: [Pneumovax 23] TAMARA DOWNING SECURITY INFRASTRUCTURE ENGINEER-RECEPTIONIST DOCTOR'S OFFICE [facility] Payers Date Payer Category Payer Private Health Insurance [id number] 1950 Unknown [id number] 1950 Unknown [id number] 1950 Unknown [id number] Social History Date Type Detail Facility Start: 01-14-2020 Ex-smoker (finding) [facility] Sex Assigned At Male [facility] Clinical Notes 07-05-2022 LaboratoryLaboratoryLaboratoryLaboratoryLaboratory Note Date & Type Note Facility 07-05-2022 Note ORIGINAL EXAMINATION: SOFT TISSUE ULTRASOUND OF THE RIGHT EXTREMITY07/05/2022 8:39 am TECHNIQUE: Duplex ultrasound using B-mode/persaud scaled imaging and Doppler spectral analysis and color flow was obtained of the right extremity. COMPARISON: A printed image of AP radiographs of the knees that is done elsewhere. HISTORY: ORDERING SYSTEM PROVIDED HISTORY: Reason for Exam: Foreign body in soft tissue near knee joint FINDINGS: Scanning of the soft tissues posteromedial to the right knee shows a linear echogenic structure of about 8 x 3 x 1 mm in the superficial soft tissues that probably corresponds to the radiopaque foreign bodies seen on the outside x-rays. Some images suggest that this is located within a superficial vein which may have thrombus within it. IMPRESSION: The linear radiopaque foreign body seen radiographically is identified on this study. There is suggestion of intravenous location of the foreign body and possible thrombus in the superficial veins. Suggest clarification of these findings with a Doppler evaluation of the lower extremity veins with attention to this region to confirm if there is indeed superficial venous thrombosis and to confirm intravascular location of the foreign body.. Interpreted by: Homero Fine MD Preliminary Report By: Homero Fine MD Electronically signed By Homero Fine MD Dictated Date: 07/05/2022 12:52:12 PM Prelim Date: 07/05/2022 12:56:54 PM Sign Date: 07/05/2022 12:56:54 PM Ordering Provider: GONZALEZ OLIVER [facility] 07-05-2022 Note ORIGINAL EXAMINATION: SOFT TISSUE ULTRASOUND OF THE RIGHT EXTREMITY07/05/2022 8:39 am TECHNIQUE: Duplex ultrasound using B-mode/persaud scaled imaging and Doppler spectral analysis and color flow was obtained of the right extremity. COMPARISON: A printed image of AP radiographs of the knees that is done elsewhere. HISTORY: ORDERING SYSTEM PROVIDED HISTORY: Reason for Exam: Foreign body in soft tissue near knee joint FINDINGS: Scanning of the soft tissues posteromedial to the right knee shows a linear echogenic structure of about 8 x 3 x 1 mm in the superficial soft tissues that probably corresponds to the radiopaque foreign bodies seen on the outside x-rays. Some images suggest that this is located within a superficial vein which may have thrombus within it. IMPRESSION: The linear radiopaque foreign body seen radiographically is identified on this study. There is suggestion of intravenous location of the foreign body and possible thrombus in the superficial veins. Suggest clarification of these findings with a Doppler evaluation of the lower extremity veins with attention to this region to confirm if there is indeed superficial venous thrombosis and to confirm intravascular location of the foreign body.. Interpreted by: Homero Fine MD Preliminary Report By: Homero Fine MD Electronically signed By Homero Fien MD Dictated Date: 07/05/2022 12:52:12 PM Prelim Date: 07/05/2022 12:56:54 PM Sign Date: 07/05/2022 12:56:54 PM Ordering Provider: GONZALEZ OLIVER [facility] Evaluation + Plan note Future Appointments Appointment Date:03/01/2022 09:00:00 AM Scheduled Provider:TAMARA DOWNING Location:[facility] Appointment Type:CV OV Appointment Date:03/10/2022 10:00:00 AM Scheduled Provider: Location:[facility] Appointment Type:PC Nurse Lab Appointment Date:03/17/2022 10:00:00 AM Scheduled Provider:GONZALEZ OLIVER MD Location:[facility] Appointment Type:PC OV Future Scheduled [id number] Hemoglobin 03/17/22A1C Hemoglobin 12/18/20Lipid Profile 03/17/22Lipid Profile 12/18/20Complete Metabolic Panel 03/17/22Complete Metabolic Panel 12/18/20 [facility] Evaluation + Plan note Future Appointments Appointment Date:03/17/2022 10:00:00 AM Scheduled Provider:GONZALEZ OLIVER MD Location:[facility] Appointment Type:PC OV Appointment Date:09/14/2022 09:00:00 AM Scheduled Provider:TAMARA DOWNING Location:[facility] Appointment Type:CV OV Future Scheduled TestsLipid Profile 03/17/22 [facility] Evaluation + Plan note Future Appointments Appointment Date:09/07/2022 09:30:00 AM Scheduled Provider: Location:[facility] Appointment Type:PC Nurse Lab Appointment Date:09/14/2022 09:00:00 AM Scheduled Provider:TAMARA DOWNING Location:[facility] Appointment Type:CV OV Appointment Date:09/15/2022 10:00:00 AM Scheduled Provider:GONZALEZ OLIVER MD Location:[facility] Appointment Type:PC OV Future Scheduled TestsProstate Specific Antigen 03/17/22A1C Hemoglobin 09/17/22Lipid Profile 09/17/22Lipid Profile 03/17/22Complete Metabolic Panel 09/17/22 [facility] Evaluation + Plan note Future Appointments Appointment Date:03/16/2023 10:30:00 AM Scheduled Provider:GONZALEZ OLIVER MD Location:[facility] Appointment Type:PC OV Appointment Date:06/14/2023 09:00:00 AM Scheduled Provider:TAMARA DOWNING Location:[facility] Appointment Type:CV OV Future Scheduled TestsLipid Profile 03/17/22 [facility] Evaluation + Plan note Future Appointments Appointment Date:06/14/2023 09:00:00 AM Scheduled Provider:TAMARA DOWNING Location:[facility] Appointment Type:CV OV Appointment Date:09/13/2023 08:45:00 AM Scheduled Provider: Location:[facility] Appointment Type:PC Nurse Lab Appointment Date:09/21/2023 10:00:00 AM Scheduled Provider:GONZALEZ OLIVER MD Location:[facility] Appointment Type:PC OV Future Scheduled [id number] Hemoglobin 09/16/23Lipid Profile 5/12/22Lipid Profile 09/16/23Complete Metabolic Panel 09/16/23 [facility] Evaluation + Plan note Future Appointments Appointment Date:09/21/2023 10:00:00 AM Scheduled Provider:GONZALEZ OLIVER MD Location:[facility] Appointment Type:PC OV Appointment Date:12/26/2023 10:00:00 AM Scheduled Provider:TAMARA DOWNING Location:[facility] Appointment Type:CV OV [facility] Hospital course Narrative No data available for this section [facility] Hospital Discharge instructions No data available for this section [facility] Progress note No data available for this section [facility] Summary Purpose Family History No Family History Records Found No data available for this section No Family History Records Found Advance Directives No Advanced Directives Records FoundNo Advanced Directives Records Found Additional Source Comments (unrecognized sect ion and content) No Status Records FoundNo Status Records Found INFORMATION SOURCE (unrecogn ized section and content) DATE CREATED AUTHOR AUTHOR'S ORGANIZ ATION 09/18/2023 [facility] ([place]) Care Team (unrecognized sect ion and content) Personnel Name: GONZALEZ OLIVER MD Address: [address] [facility] [place], [place] [id number] [place] [address] Care Team Personnel Name: GONZALEZ OLIVER MD Position: P4 Physician - Primary Care Member Role: Primary Care Physician Address: Address: [address] [place] [address] [place] [address]- [place] Care Team Related Persons Name: HIRA PRYOR Name: HIRA PRYOR Name: DIANA PRYOR Address: [address] [phone] Care Team Personnel Name: GONZALEZ OLIVER MD Position: P4 Physician - Primary Care Member Role: Primary Care Physician Address: Address: [address] [place] [address] [place] Care Team Related Persons Name: HIRA PRYOR Name: HIAR PRYOR Name: DIANA PRYOR Address: [address] [phone] Care Team Personnel Name: GONZALEZ OLIVER MD Position: P4 Physician - Primary Care Member Role: Primary Care Physician Address: Address: [address] [place] [address] Care Team Related Persons Name: HIRA PRYOR Name: HIRA PRYOR Name: DIANA PRYOR Address: [address] [phone] Care Team (unrecognized sect ion and content) Care Team Personnel Name: GONZALEZ OLIVER MD Position: P4 Physician - Primary Care Member Role: Primary Care Physician Address: Address: [address] [place] [address] Care Team Related Persons Name: HIRA PRYOR Name: HIRA PRYOR Name: DIANA PRYOR Address: [address] [phone] FOR RECORDS PERTAINING TO PATIENTS WHO ARE OR HAVE BEEN ENROLLED IN A CHEMICAL DEPENDENCY/SUBSTANCEABUSE PROGRAM, SOME INFORMATION MAY BE OMITTED. This clinical summary was aggregated from multiple sources. Caution should be exercised in using it in the provision of clinical care. This summary normalizes information from multiple sources, and as a consequence, information in this document may materially change the coding, format and clinical context of patient data. In addition, data may be omitted in some cases. CLINICAL DECISIONS SHOULD BE BASED ON THE PRIMARY CLINICAL RECORDS. [employer] provides no warranty or guarantee of the accuracy or completeness of information in this document.
== END | disposition home or self-care (01) ==
LOC: CVS 07:39
PROVIDERS: PCP Family Medicine; Referring Provider Surgery Vascular Surgery; Visit Provider Surgery Vascular Surgery
DX: I65.23 Occlusion and stenosis of bilateral carotid arteries (principal)
CPT/HCPCS: 93880